=== PATIENT | female | born 1985 | race Caucasian/White ===

== ENCOUNTER → 2021-07-21 | Outpatient (REF) | LOC: LAB 06:24 | DX: Z20.822 Contact with and (suspected) exposure to COVID-19 (principal) ==

== ENCOUNTER → 2022-11-06 | Outpatient (CLI) | payer OTHER ==
[2022-11-07 17:46] LABS: HEPATITIS C VIRUS ANTIBODY Negative (Negative)
== END ==
LOC: LAB 15:55
PROVIDERS: Internal Medicine
DX: B20 Human immunodeficiency virus [HIV] disease (principal)

== ENCOUNTER → 2024-10-06 | Outpatient (CLI) | payer BC | LOC: MAMMO 14:48 | DX: Z12.31 Encounter for screening mammogram for malignant neoplasm of breast (principal) ==